=== PATIENT | female | born 1965 | race Two or more races ===

== ENCOUNTER 2021-02-25 09:39 | Emergency (ER) | payer OTHER ==
[~2021-02-25] VITALS: Ht 167.6 cm; Wt 89.4 kg
[2021-02-25] MEDS ORDERED: REGLAN5 MG/5 ML PO (09:52)
[2021-02-25] MEDS ORDERED: COZAAR25 MG PO (09:52)
[2021-02-25] MEDS ORDERED: DICLOFENAC POTA50 MG PO (13:51)
[2021-02-25] MEDS ORDERED: ORPHENADRINE C100 MG PO (13:51)
== END 2021-02-25 13:59 ==
LOC: ER 09:39
DX: S20.213A Contusion of bilateral front wall of thorax, initial encounter (principal); S13.8XXA Sprain of joints and ligaments of other parts of neck, initial encounter; S53.492A Other sprain of left elbow, initial encounter; V49.88XA Car occupant (driver) (passenger) injured in other specified transport accidents, initial encounter; Y93.89 Activity, other specified; Y92.488 Other paved roadways as the place of occurrence of the external cause; Y99.8 Other external cause status

== ENCOUNTER 2021-05-22 21:04 | Emergency (ER) | payer OTHER ==
[~2021-05-22] VITALS: Ht 167.6 cm; Wt 86.2 kg
[~2021-05-22 21:04] MED LIST: COZAAR25 MG PO; DICLOFENAC POTA50 MG PO; ORPHENADRINE C100 MG PO; REGLAN5 MG/5 ML PO
[2021-05-22] MEDS ORDERED: MEDROLPACK PO (23:34)
== END 2021-05-23 00:13 | disposition home or self-care (01) ==
LOC: ER 21:04
DX: G50.0 Trigeminal neuralgia (principal); I10 Essential (primary) hypertension

== ENCOUNTER 2023-08-11 22:18 | Emergency (ER) | payer OTHER ==
[~2023-08-11] VITALS: Ht 167.6 cm; Wt 80.7 kg
[~2023-08-11 22:18] MED LIST changes: +MEDROLPACK PO
[2023-08-12] MEDS ORDERED: KETOROLAC TROMETHAMINE 60 MG VIAL IM STA (00:58)
[2023-08-12] MEDS ORDERED: VALACYCLOVIR1000 MG PO (01:17)
[2023-08-12] MEDS ORDERED: ZOVIRAX30 GM TOP (01:17)
[2023-08-12] MEDS ORDERED: KETO10TA2 PO (01:17)
== END 2023-08-12 01:23 | disposition home or self-care (01) ==
LOC: ER → EDBD 23:34 → ER 08-12 01:23
DX: B02.9 Zoster without complications (principal); I10 Essential (primary) hypertension